=== PATIENT | female | born 1955 | race Caucasian/White ===

== ENCOUNTER 2022-04-01 05:10 | Observation (INO) ==
--- NOTE | 2022-01-07 10:41 | PAT Medication Instructions ---
Medication Instructions Date of Service January 07, 2022 Home Medications acetaminophen 500 mg capsule 500 mg PO Q6H PRN Pain amlodipine 10 mg tablet 10 mg PO HS atorvastatin 10 mg tablet 10 mg PO HS calcium carbonate 200 mg calcium (500 mg) chewable tablet (Tums) 200 mg PO BID PRN Heartburn cholecalciferol (vitamin D3) 25 mcg (1,000 unit) tablet (Vitamin D3) 25 mcg PO QAM cyanocobalamin (vitamin B-12) 1,000 mcg tablet (Vitamin B-12) 1,000 mcg PO QAM escitalopram oxalate 10 mg tablet 10 mg PO QAM folic acid 1 mg tablet 1 mg PO QAM guaifenesin 600 mg tablet, extended release 12 hr 600 mg PO DAILY PRN sinus congestion lisinopril 40 mg tablet 40 mg PO QAM tamsulosin 0.4 mg capsule 0.4 mg PO HS DO NOT take the morning of surgery calcium carbonate 200 mg calcium (500 mg) chewable tablet (Tums) 200 mg PO BID PRN Heartburn cholecalciferol (vitamin D3) 25 mcg (1,000 unit) tablet (Vitamin D3) 25 mcg PO QAM cyanocobalamin (vitamin B-12) 1,000 mcg tablet (Vitamin B-12) 1,000 mcg PO QAM folic acid 1 mg tablet 1 mg PO QAM guaifenesin 600 mg tablet, extended release 12 hr 600 mg PO DAILY PRN sinus congestion lisinopril 40 mg tablet 40 mg PO QAM Take morning of surgery With a small sip of water, OTHERWISE NOTHING TO EAT OR DRINK AFTER MIDNIGHT: acetaminophen 500 mg capsule 500 mg PO Q6H PRN Pain (if needed) escitalopram oxalate 10 mg tablet 10 mg PO QAM Take evening before surgery acetaminophen 500 mg capsule 500 mg PO Q6H PRN Pain (if needed) amlodipine 10 mg tablet 10 mg PO HS atorvastatin 10 mg tablet 10 mg PO HS calcium carbonate 200 mg calcium (500 mg) chewable tablet (Tums) 200 mg PO BID PRN Heartburn (if needed) guaifenesin 600 mg tablet, extended release 12 hr 600 mg PO DAILY PRN sinus congestion (if needed) tamsulosin 0.4 mg capsule 0.4 mg PO HS Other Notes If you have any questions please call us at [phone] or [phone] or [phone] or [phone]
--- NOTE | 2022-01-14 11:35 | Anesthesiology Consultation ---
Date of Service January 14, 2022 Assessment & Plan (1) Encounter for pre-operative examination: - check BSG am DOS. Outpatient joint assessment: Patient is currently scheduled for inpatient pathway. If re-evaluated pending system levels during current pandemic/surgeon requests outpatient pathway, patient is not acceptable candidate for outpatient joint program from anesthesia standpoint. Chart Review Chart Review: Acceptable Risk for Surgery and Patient seen in Pre Admission Testing Teaching & Discussion Pre-Anesthesia Teaching/Discussion Notes: Instructed NPO after midnight before surgery, except medications with 15 cc of water. Medication instructions provided according to the PAT guidelines. History Surgery Operation Date: 02/17/22 08:10 Proposed Procedures p Left Total Knee Arthroplasty - Edgardo Corbett DO Height/Weight Height: 5 ft 5 in Weight: 118.5 kg Allergies Allergy/AdvReac Type Severity Reaction Status Date / Time Sulfa (Sulfonamide Allergy Severe tongue Verified 01/07/22 09:20 Antibiotics) itching watermelon Allergy Severe tongue Verified 01/07/22 09:20 itching Medications Home Medications Medication Instructions Recorded Confirmed Last Taken acetaminophen 500 mg capsule 500 mg PO Q6H PRN Pain 01/07/22 01/07/22 Unknown amlodipine 10 mg tablet 10 mg PO HS 01/07/22 01/07/22 Unknown atorvastatin 10 mg tablet 10 mg PO HS 01/07/22 01/07/22 Unknown calcium carbonate 200 mg calcium 200 mg PO BID PRN Heartburn 01/07/22 01/07/22 Unknown (500 mg) chewable tablet (Tums) cholecalciferol (vitamin D3) 25 25 mcg PO QAM 01/07/22 01/07/22 Unknown mcg (1,000 unit) tablet (Vitamin D3) cyanocobalamin (vitamin B-12) 1,000 mcg PO QAM 01/07/22 01/07/22 Unknown 1,000 mcg tablet (Vitamin B-12) escitalopram oxalate 10 mg tablet 10 mg PO QAM 01/07/22 01/07/22 Unknown folic acid 1 mg tablet 1 mg PO QAM 01/07/22 01/07/22 Unknown guaifenesin 600 mg tablet, 600 mg PO DAILY PRN sinus 01/07/22 01/07/22 Unknown extended release 12 hr congestion lisinopril 40 mg tablet 40 mg PO QAM 01/07/22 01/07/22 Unknown tamsulosin 0.4 mg capsule 0.4 mg PO HS 01/07/22 01/07/22 Unknown biotin 01/14/22 Unknown melatonin QPM 01/14/22 Unknown Additional Notes: Pt was advised she needs to stop biotin 2 weeks before surgery, also written on provided medication instructions. She was advised can continue melatonin at night. She verbalized full understanding and agreement, denied questions or concerns. Past Medical History Medical History (Updated 01/15/22 @ 09:44 by Lisa Prabhakar PA-C) Chronic back pain pelvic/lower back d/t a work injury Chronic kidney disease stage 3 - monitoring, Cr 1.7 04/2021 per [facility] records Depression Diabetes mellitus, type 2 diet controlled H/O no anesthesia given at the time (age 21) Hyperlipidemia Hypertension controlled, stable per pt Mild heartburn Peripheral neuropathy hands and feet bilat Patient denies h/o stroke, seizures, heart attack, heart failure, blood clots or blood transfusions. Exercise / Class Metabolic Activity III < 4 Walking/Shop/Light housework (denies CP or SOB with usual activities) Past Family History Family History Other No family history of adverse response to anesthesia Past Surgical History Surgical History History of cataract surgery bilateral Past Anesthesia History No Hx of Anesthesia Complications and Other (mother slow to wake up) History of PONV No Hx of PONV and No Hx of Motion Sickness Social History Smoking Status: Former smoker tobacco type: cigarettes Do You Dip or Chew Tobacco: No Smoking End Date: 2009 Hx Alcohol Use: Yes alcohol intake frequency: holidays/special occasions only Hx Substance Use: No substance use type: former substance user (marijuana, yrs ago) Review of Systems Chronic cough with postnasal drip. Denies change or worsening. Patient denies chest pain, shortness of breath, dyspnea on exertion, snoring, witnessed apneas, fever, chills, wheezing, or palpitations. Physical Exam Vital Signs Vitals BP 142/84 P 66 TEMP 97.7 SP02 98% on RA RESP 18 Physical Full cervical extension range of motion without pain TMD 3.5 finger breadths Mallampati Score 3 Dentition: intact, several caps/crowns; denies chipped or loose teeth, implants or bridges Lungs: normal respiratory effort. Clear throughout to auscultation, no adventitious breath sounds Cardiac: regular rate and rhythm, no murmurs noted Carotid arteries: negative bruit bilat Lab Results Anesthesia Preop Results Results Anesthesia Widget: WBC 6.24 K/ul (4.8-10.8) 01/14/22 Hgb 12.1 g/dl (12.0-16.0) 01/14/22 Hct 36.0 % (34.1-44.9) 01/14/22 Plt 216 K/uL (130-400) 01/14/22 Na 134 mmol/L (136-145) L 01/14/22 K 4.3 mmol/L (3.5-5.1) 01/14/22 Cl 99 mmol/L (98-107) 01/14/22 CO2 28 mmol/L (21-32) 01/14/22 BUN 33 mg/dl (6-23) H 01/14/22 Creat 1.75 mg/dl (0.6-1.2) H 01/14/22 Glucose Level 145 mg/dl (70-99(Fasting)) H 01/14/22 PT 10.0 Seconds (9.0-12.0) 01/14/22 PTT 29.1 Seconds (21.0-31.0) 01/14/22 INR 0.9 (0.9-1.1) 01/14/22 HA1c 6.8 % (4.5-5.6) H 01/14/22 Urine Color Yellow 01/14/22 Urine Appearance Cloudy (Clear) A 01/14/22 Urine pH 6.0 (4.5-7.5) 01/14/22 Urine Specific [place] 1.017 (1.000-1.030) 01/14/22 Urine Protein 1+ (Negative) H 01/14/22 Urine Glucose (UA) Negative (Negative) 01/14/22 Urine Ketones Negative (Negative) 01/14/22 Urine Blood Negative (Negative) 01/14/22 Urine Nitrite Positive (Negative) A 01/14/22 Urine Bilirubin Negative (Negative) 01/14/22 Urine Urobilinogen Negative (Negative) 01/14/22 Urine Leukocyte Esterase Negative (Negative) 01/14/22 Urine WBC (Auto) 1-5 /hpf (0-5) 01/14/22 Urine RBC (Auto) 0-4 /hpf (0-4) 01/14/22 Urine Hyaline Casts (Auto) 0 /lpf (0-5) 01/14/22 Urine Epithelial Cells (Auto) 20-30 /lpf (0-5) H 01/14/22 Urine Bacteria (Auto) 4+ (Negative) H 01/14/22 Blood Type O Negative 01/14/22 Antibody Screen NEGATIVE 01/14/22 Testing Laboratory Results Yoana with surgeon's office made aware of abnormal UA, renal function. Electrocardiogram Date: 01/14/22 NSR, rate 64 bpm Chest X-Ray Date: 01/14/22 No acute chest disease Other Testing Carotid doppler 03/15/20 R ICA < 50% stenosis L ICA < 50% stenosis
--- NOTE | 2022-03-24 08:03 | History & Physical Report ---
Date of Service March 24, 2022 date of surgery: 04/01/22 Procedure: Left Total Knee Arthroplasty Surgeon: Edgardo Corbett Assessment & Plan (1) Arthritis of knee, left: Plan: Patient presents for preop evaluation prior to her left total knee replacement, all the risk and benefits of the procedure were discussed in detail and she would like to proceed with surgical invention. Will place on aspirin 81 mg twice a day for 1 month postop DVT prophylaxis. She will need to obtain medical clearance from Dr. Thomas prior to her surgery, she does states she lives alone but [facility] [place] and plans on a 2-week stay there after her surgery. Then after that has neighbors and her brother that are willing to help her otherwise she has no other questions or concerns The risks and benefits have been discussed including, but not limited to, risk of infection, nerve injury, stiffness, loss of motion, failure to improve, etc. Reasonable outcomes and options of treatment were discussed. An explanation of appropriate alternatives to the procedure that may be advantageous were discussed and their risks and benefits, as well as the risks and benefits of not proceeding with treatment. I offered to answer any additional inquiries concerning the treatment involved. All the patient's questions were answered. The patient is agreeable, understanding of the treatment plan and alternatives, and wishes to proceed with the treatment plan. History of Present Illness Chief Complaint: left knee pain Primary Care Provider: Khadijah Thomas DO Neli is a pleasant 66-year-old female who presents for preop evaluation prior to her left knee replacement. She states that she been having pain in this knee for many years now and is gradually worsened to the point is affecting her daily activities. She is currently sitting in wheelchair which she uses for longer distances but states she is able to ambulate with a walker. She has tried and failed prior corticosteroid injections as well as using Tylenol and Tylenol PM. She denies any previous history of surgery to the knee. She rates her current pain as a 7 out of 10. Patient does state that she lives alone but has a brother and neighbors that can help her after her surgery Allergies Allergy/AdvReac Type Severity Reaction Status Date / Time Sulfa (Sulfonamide Allergy Unknown tongue Verified 03/23/22 11:11 Antibiotics) itching watermelon Allergy Unknown tongue Verified 03/23/22 11:11 itching SLEEP MEDICINES AdvReac Unknown NIGHTMARES Uncoded 03/23/22 11:11 Home Medications Medication Instructions Recorded Confirmed Type acetaminophen 500 mg capsule 500 mg PO Q6H PRN Pain 01/07/22 01/07/22 History amlodipine 10 mg tablet 10 mg PO HS 01/07/22 01/07/22 History atorvastatin 10 mg tablet 10 mg PO HS 01/07/22 01/07/22 History calcium carbonate 200 mg calcium 200 mg PO BID PRN Heartburn 01/07/22 01/07/22 History (500 mg) chewable tablet (Tums) cholecalciferol (vitamin D3) 25 25 mcg PO QAM 01/07/22 01/07/22 History mcg (1,000 unit) tablet (Vitamin D3) cyanocobalamin (vitamin B-12) 1,000 mcg PO QAM 01/07/22 01/07/22 History 1,000 mcg tablet (Vitamin B-12) escitalopram oxalate 10 mg tablet 10 mg PO QAM 01/07/22 01/07/22 History folic acid 1 mg tablet 1 mg PO QAM 01/07/22 01/07/22 History guaifenesin 600 mg tablet, 600 mg PO DAILY PRN sinus 01/07/22 01/07/22 History extended release 12 hr congestion lisinopril 40 mg tablet 40 mg PO QAM 01/07/22 01/07/22 History tamsulosin 0.4 mg capsule 0.4 mg PO HS 01/07/22 01/07/22 History diphenhydramine 25 1 tab PO HS PRN Sleep 03/23/22 03/23/22 History mg-acetaminophen 500 mg tablet (Tylenol PM Extra Strength) melatonin 3 mg tablet 3 mg PO HS PRN Sleep 03/23/22 03/23/22 History Past Med/Surg History Medical History Chronic back pain pelvic/lower back d/t a work injury Chronic kidney disease stage 3 - monitoring, Cr 1.7 04/2021 per [facility] records Depression Diabetes mellitus, type 2 diet controlled Family history of reaction to anesthesia mother slow to wake up after anesthesia for childbirth in the 1950's H/O no anesthesia given at the time (age 21) Hyperlipidemia Hypertension recently elevated d/t nerves for upcoming surgery per pt Mild heartburn Peripheral neuropathy hands and feet bilat Unique anesthetic considerations present on preoperative anesthesia assessment PT REPORTS FEAR OF BEING PUT UNDER, DOES NOT LIKE THE FEELING OF LOSING CONTROL Surgical History History of cataract surgery bilateral Family History Grandmother Family history of diabetes mellitus Grandfather Family history of diabetes mellitus Grandfather (Paternal) Family history of heart attack Social History Smoking Status: Former smoker Second Hand Exposure: Yes (as a child); Hx Alcohol Use: Yes Alcohol type: wine Hx Substance Use: Yes (1969'S SMOKED POT/EARLY 'S HX COCAINE (CLEAN AT 32 OR 33)) Preferred Language: Danish Communication Ability: Effective Track Template Maker Required: No Beliefs That Will Affect Care: None and Christianity Christianity Beliefs: SHINTO Current Living Situation: Alone Feels Safe at Home: Yes Assistive Devices: Wheelchair and Other Review of Systems Review of Systems: All systems reviewed & are unremarkable except as noted in HPI & below Constitutional: no fever, no chills and no sweats Respiratory: no cough and no dyspnea Cardiovascular: no chest pain, no dyspnea and no orthopnea Gastrointestinal: no abdominal pain, no nausea and no vomiting Musculoskeletal: as per Subjective / HPI Physical Exam Physical Exam: HT: 5ft 5in WT: 113.398 kg Constitutional: WD/WN, vitals as above no acute distress Respiratory: normal respiratory effort, lungs clear to auscultation no respiratory distress, no labored breathing and does not use accessory muscles Cardiovascular: RRR, no murmur, no edema Gastrointestinal (Abdomen): normal bowel sounds, soft, nontender, no hepatosplenomegaly Musculoskeletal: Knee: + knee abnormal to inspection (LEFT KNEE: ), + effusion (+1 effusion), + limited ROM of knee (ROM 0/3/110), + knee ROM with crepitation, + joint line tenderness (medial joint line) and + Christina's sign positive; no deformity, no skin erythema, no ecchymosis, no valgus laxity, no varus laxity, anterior drawer test negative, Sarah's sign negative and pivot shift test negative Results & Data Results & Data ([facility]) Diagnostic Findings Left Knee X-ray: left knee series confirm advanced degenerative changes to the left knee, greatest medial compartments and patellofemoral joint, showing joint space narrowing, osteophyte formation and subchondral sclerosis. no acute bony pathology noted.
--- NOTE | 2022-03-25 12:32 | Anesthesiology Consultation ---
Date of Service March 25, 2022 Assessment & Plan (1) Encounter for pre-operative examination: - COVID screening: Per assessment on 03/25: No known COVID-19 positive contacts or current COVID-19 related symptoms. Travel screen negative. Patient vaccinated. At surgeon discretion if preop Covid testing being done. - Check BSG AM DOS - Outpatient joint assessment: Pt currently scheduled for inpatient pathway. If surgeon requests review for outpatient joint pathway, patient is not recommended candidate for outpatient joint program from anesthesia standpoint. - Anesthesia concern: Patient reports fear of anesthesia, "does not like the feeling of losing control" - Nephrology office visit (02/18/22): "CKD3B stable for past 2 years w/ acceptable chemistries and volume status currently.. From a nephrology perspective, she is acceptable risk to have knee replacement > correa would be to avoid IV contrast and nsaids and to monitor bmp pre/post operatively.. we looked at the CKD heat map > showed her how steps she's taken to improve self care have moved renal risk from red to orange ; unlikely she will ever be other than CKD 3B though.. Hx of recurrent UTI early in her marriage; then resolved now just finishing abtx for asx bacteriuria.. ?if R renal atrophy may reflect VUR earlier in life.. monitor; abtx only w/ +cx and sx ideally in advanced ckd" - PCP office visit (03/18/22): "Pt has revised cardiac index score of One Risk Factor- 1.0% (95% CI: 0.5-1.4) for the surgery scheduled. Patient is low for the listed procedure." - Could not void at PAT: pt bringing urine sample to [facility] per PAT tech. Awaiting UA/urine culture report. Patient otherwise acceptable risk for surgery. Chart Review Chart Review: Patient seen in Pre Admission Testing Teaching & Discussion Pre-Anesthesia Teaching/Discussion Notes: Instructed NPO after midnight before surgery,except medications with 15 cc of water. Medication instructions provided according to the PAT guidelines. History Surgery Operation Date: 04/01/22 07:00 Proposed Procedures p Left Total Knee Arthroplasty - Edgardo Corbett DO Height/Weight Height: 5 ft 5 in Weight: 115.4 kg Allergies Allergy/AdvReac Type Severity Reaction Status Date / Time Sulfa (Sulfonamide Allergy Unknown tongue Verified 03/23/22 11:11 Antibiotics) itching watermelon Allergy Unknown tongue Verified 03/23/22 11:11 itching SLEEP MEDICINES AdvReac Unknown NIGHTMARES Uncoded 03/23/22 11:11 Medications Home Medications Medication Instructions Recorded Confirmed Last Taken acetaminophen 500 mg capsule 500 mg PO Q6H PRN Pain 01/07/22 01/07/22 Unknown amlodipine 10 mg tablet 10 mg PO HS 01/07/22 01/07/22 Unknown atorvastatin 10 mg tablet 10 mg PO HS 01/07/22 01/07/22 Unknown calcium carbonate 200 mg calcium 200 mg PO BID PRN Heartburn 01/07/22 01/07/22 Unknown (500 mg) chewable tablet (Tums) cholecalciferol (vitamin D3) 25 25 mcg PO QAM 01/07/22 01/07/22 Unknown mcg (1,000 unit) tablet (Vitamin D3) cyanocobalamin (vitamin B-12) 1,000 mcg PO QAM 01/07/22 01/07/22 Unknown 1,000 mcg tablet (Vitamin B-12) escitalopram oxalate 10 mg tablet 10 mg PO QAM 01/07/22 01/07/22 Unknown folic acid 1 mg tablet 1 mg PO QAM 01/07/22 01/07/22 Unknown guaifenesin 600 mg tablet, 600 mg PO DAILY PRN sinus 01/07/22 01/07/22 Unknown extended release 12 hr congestion lisinopril 40 mg tablet 40 mg PO QAM 01/07/22 01/07/22 Unknown tamsulosin 0.4 mg capsule 0.4 mg PO HS 01/07/22 01/07/22 Unknown diphenhydramine 25 1 tab PO HS PRN Sleep 03/23/22 03/23/22 Unknown mg-acetaminophen 500 mg tablet (Tylenol PM Extra Strength) melatonin 3 mg tablet 3 mg PO HS PRN Sleep 03/23/22 03/23/22 Unknown Past Medical History Medical History Chronic back pain pelvic/lower back d/t a work injury Chronic kidney disease stage 3 - monitoring, Cr 1.7 04/2021 and 12/2021 labs Depression Diabetes mellitus, type 2 diet controlled H/O No anesthesia given at the time (age 21) Hyperlipidemia Hypertension recently elevated d/t nerves for upcoming surgery per pt Mild heartburn Morbid obesity Peripheral neuropathy b/l hands and feet Exercise / Class Metabolic Activity IV < 2 Limit ADL/Bedbound Past Family History Family History Grandmother Family history of diabetes mellitus Grandfather Family history of diabetes mellitus Grandfather (Paternal) Family history of heart attack Past Surgical History Surgical History History of cataract surgery bilateral Unique anesthetic considerations present on preoperative anesthesia assessment Patient reports fear of anesthesia, "does not like the feeling of losing control" Past Anesthesia History No Hx of Anesthesia Complications Mother slow to wake up after anesthesia for childbirth in the 1950s History of PONV No Hx of PONV and No Hx of Motion Sickness Social History Smoking Status: Former smoker tobacco type: cigarettes Do You Dip or Chew Tobacco: No Smoking End Date: 12 years ago Hx Alcohol Use: Yes Alcohol type: wine alcohol intake frequency: holidays/special occasions only Hx Substance Use: Yes (Hx cocaine use early 30s (clean at [age]) per records) substance use type: does not use Review of Systems Patient denies chest pain, shortness of breath, fever, chills, cough, wheezing, palpitations. Physical Exam Vital Signs VITALS BP 143/73 P 62 TEMP WNL SP02 97%RA RESP 18 PHYSICAL Full cervical extension range of motion. Full TMJ range of motion. TMD 3 finger breaths Mallampati Score 3 Dentition: several missing teeth, + crowns/cap Lungs: clear throughout to auscultation Cardiac: regular rate and rhythm, no murmurs noted Spine: normal Carotid arteries: negative bruit Extremities: no edema Lab Results Anesthesia Preop Results Results Anesthesia Widget: WBC 6.63 K/ul (4.8-10.8) 03/25/22 Hgb 11.8 g/dl (12.0-16.0) L 03/25/22 Hct 35.4 % (34.1-44.9) 03/25/22 Plt 228 K/uL (130-400) 03/25/22 Na 138 mmol/L (136-145) 03/25/22 K 4.7 mmol/L (3.5-5.1) 03/25/22 Cl 101 mmol/L (98-107) 03/25/22 CO2 28 mmol/L (21-32) 03/25/22 BUN 24 mg/dl (6-23) H 03/25/22 Creat 1.70 mg/dl (0.6-1.2) H 03/25/22 Glucose Level 147 mg/dl (70-99(Fasting)) H 03/25/22 PT 9.9 Seconds (9.0-12.0) 03/25/22 PTT 29.0 Seconds (21.0-31.0) 03/25/22 INR 0.9 (0.9-1.1) 03/25/22 HA1c 6.3 % (4.5-5.6) H 03/25/22 Blood Type O Negative 03/25/22 Antibody Screen NEGATIVE 03/25/22 Testing Electrocardiogram Date: 01/14/22 NSR, rate 64 bpm Chest X-Ray Date: 01/14/22 No acute chest disease Other Testing Carotid doppler 03/15/20 R ICA < 50% stenosis L ICA < 50% stenosis COVID-19 Risk Screen Screening Information COVID-19 Screen Date: 03/25/22 Exposure 21 Days Family/Household +COVID Last 21 Days: No Exposure 10 Days Any COVID Exposure Last 10 Days: No Symptoms Last 10 Days Experienced COVID Sx Last 10 Days: No + COVID 0-90 Days COVID + in Last 0-90 Days: No
[2022-04-01] MEDS ORDERED: ROPIVACAINE 0.5% HCL/PF 150 MG, BUPIVACAINE 0.75% MPF 20 ML, EPINEPHrine 30MG/30ML (OR ... INSTIL SCH (06:00)
[2022-04-01] MEDS ORDERED: FAMOTIDINE 20 MG TAB PO SCH (06:00)
[2022-04-01] MEDS ORDERED: dexAMETHasone 4 MG TAB PO SCH (06:00)
[2022-04-01] MEDS ORDERED: METOCLOPRAMIDE HCL 10 MG TABLET PO SCH (06:00)
[2022-04-01] MEDS ORDERED: TRANEXAMIC ACID 1,000 MG **IV Pre-op IV SCH (06:00)
[2022-04-01] MEDS ORDERED: ACETAMINOPHEN 500 MG TAB PO SCH (06:00)
[2022-04-01] MEDS ORDERED: ceFAZolin 2000MG 2,000 MG/15 ML SYR IV SCH (06:00)
[2022-04-01] MEDS ORDERED: LR 500ML BOLUS, THEN 15ML/HR IV SCH (06:00)
[2022-04-01] MEDS ORDERED: CeleBREX 200 MG CAP PO SCH (06:00)
[2022-04-01] MEDS ORDERED: SODIUM CHLORIDE 0.9% 1000ML IV SCH (06:00)
[2022-04-01] MEDS ORDERED: TRANEXAMIC ACID 1,000 MG **IV Intra-op IV SCH (06:00)
[2022-04-01] MEDS ORDERED: GABAPENTIN 300 MG CAP PO SCH (06:00)
[2022-04-01] MEDS ORDERED: BUPIVACAINE 0.25% 30 ML VIAL ONE (06:22)
[2022-04-01] MEDS ORDERED: BUPIVACAINE 0.5 % 5 MG/1 ML PF 10ML VIAL ONE (06:22)
[2022-04-01] MEDS ORDERED: ORTHO JOINT ANESTHETIC ONE (06:39)
[2022-04-01] MEDS ORDERED: PROPOFOL IV EMULSION 10 MG/ML 20 ML VIAL IV ONE (06:49)
[2022-04-01] MEDS ORDERED: MIDAZOLAM HCL 1 MG/ML 2ML VIAL ONE ×2 (06:49)
[2022-04-01] MEDS ORDERED: LIDOCAINE 2% 20 MG/ML 5 ML SYR IV ONE (06:49)
[2022-04-01] MEDS ORDERED: ONDANSETRON INJ 2 MG/ML 2 ML VIAL IV PRN ×2 (06:57→10:06)
[2022-04-01] MEDS ORDERED: ePHEDrine sulfate 50 MG/ML AMP IV PRN (06:57)
[2022-04-01] MEDS ORDERED: fentaNYL citrate 100 MCG/2 ML VIAL IV PRN (06:57)
[2022-04-01] MEDS ORDERED: ATROPINE SULFATE 0.1 MG/ML 10ML SYR IV PRN (06:57)
--- NOTE | 2022-04-01 07:10 | History & Physical Bridge Note ---
Date of Service April 01, 2022 History & Physical Bridge Note I have examined the patient, reviewed the History & Physical and in the interval since the performance of the History & Physical I have noted the following changes of clinical significance: no changes noted
--- NOTE | 2022-04-01 08:35 | Operative Report ---
Post Operative Report Pre & Post Diagnosis Operation Date: 04/01/22 07:00 Pre-Op Diagnosis: Osteoarthritis of Left Knee Post-Op Diagnosis: Osteoarthritis of Left Knee morbid obesity I identified the patient and participated in the time-out.: Yes Procedure Operation Date: 04/01/22 07:00 Actual Procedures p Left Total Knee Arthroplasty(Left) utilizing [employer]phLutonix journey 2 patient mesh total knee arthroplasty/femur 3 left tibia to the left poly 13 mm patella 29 oval- Edgardo Corbett DO Surgeon Edgardo Corbett DO [employer] Consultant Pritesh MCKEON Estimated Blood Loss 5 Findings Consistent with Post-Op Diagnosis Patient presents with severe stage tricompartmental degenerative joint disease varus alignment subchondral sclerosis marginal osteophytes with a moderate to large effusion Specimens Bone and cartilage Drains Medium bore Hemovac Anesthesia Type MAC Spinal Regional Complications none Disposition Accompanied Patient To Recovery: No Disposition: Recovery Room Indications Patient presents for left total arthroplasty after failing 6 0 to management clinic physical therapy anti-inflammatories relative rest activity modification corticosteroid injection viscosupplementation above intraoperative findings were noted Description of Procedure After proper prepping and draping of the left lower extremity anterior midline incision was made over the region of The patient is 114.9 kg] lbs with a BMI of 42.2. The patient's habitus did contribute to significant technical difficulty requiring extra time. Additional help was necessary in order to position the patient safely. The use of specialized (longer, deeper) retractors and/or instruments were needed. Due to this, the procedure took 20] minutes longer than the standard total knee arthroplasty."the extensor extensor mechanism after meticulous hemostasis was obtained and maintained in subcutaneous tissues a medial parapatellar incision was made The patella was subluxed lateralward the medial lateral gutter were cleaned from any hypertrophic synovitis and scar tissue of the distal femoral block was placed and the distal femoral osteotomy cut was made subsequently the chamfers anterior and posterior osteotomy cuts were made utilizing the 4-in-1 block the tibia was subsequently subluxed anteri orward medial and ateral meniscal remnants were excised in their entirety remnants of the anterior and posterior cruciate ligaments were excised in their entirety excellent exposure of the proximal tibia was obtained the tibial osteotomy guide was placed on the proximal tibial osteotomy cut was made once again the knee was irrigated with copious amounts of sterile saline solution the patella was subsequently everted lateralward thickened scar tissue around the patella was removed the patella was subsequently cut utilizing a freehand technique and was drilled prepared for final preparation and placement of patella socially flexion-extension gaps were checked and the equal and symmetric trials were placed to the appropriate femoral and tibial trials with poly-spacer being placed for equal flexion and extension gaps and full range of motion including extension to 0 and flexion to 140 the trial components after having been taken to recovery range of motion was subsequently removed meticulous hemostasis was obtained and maintained subsequently a knee block injection of joint cocktail including ropivacaine 0.5% 150 mg. Bupivacaine 0.5% epinephrine 1-200,030 mL's toradol 30 mg dexamethasone 4 mg ketamine 10 mg clonidine 100 micrograms normal saline solution 30 mg was infiltrated into the soft tissues of the posterior knee medial lateral gutters and periosteal synovium special atten tion was paid to protect neurovascular structures at all times subsequently trial components having been removed the knee was irrigated with sterile saline solution. debris was removed the proximal tibia was subsequently prepared and was made ready for the placement of the tibial component tibial component was also cemented and tamped into position the femoral component was subsequently placed and cemented in the position the patellar component was subsequently cemented in position because hemostasis once again obtained and maintained wound having been thoroughly irrigated with debridement and debridement lavage was performed as well as a medial parapatellar incision closed with #1 Vicryl in interrupted fashion subcutaneous was closed with #2 Vicryl skin was closed with skin clips. PA-C was necessary for prepping and drapping as well as wound closure of deep fascia Sub cutaneous tissue and skin and was necessary for the case. A sterile compressive dressing was placed patient was taken to recovery in stable condition of report dictated by Aric I attest to the content of the Intraoperative Record and any orders documented therein. Any exceptions are noted below.Due to the complex nature of the procedure, the entire surgery was performed with the operational assistance of LINDA Lantigua. The phlebotomist medical lab assistant, under direct supervision, was involved in the actual performance of all aspects of the surgical procedure including hemostasis, tissue retraction and incision, instrument management, patient positioning, and wound closure. I attest to the content of the Intraoperative Record and any orders documented therein. Any exceptions are noted below.
[2022-04-01] MEDS ORDERED: ONDANSETRON INJ 2 MG/ML 2 ML VIAL ONE (08:51)
--- NOTE | 2022-04-01 09:15 | Anesthesiology Progress Note ---
Date of Service April 01, 2022 Anesthesia Post Procedure Vital Signs Vital Signs: Temp Pulse Pulse Resp BP Pulse Ox O2 Del Method 04/01/22 09:10 64 19 127/55 L 100 Oxymask 04/01/22 09:00 36.3 C L 71 12 136/51 L 100 Oxymask 04/01/22 05:36 36.9 C 84 20 163/80 H 97 Room Air O2 Flow Rate 04/01/22 09:10 10 04/01/22 09:00 10 04/01/22 05:36 Pain Intensity Left Knee: Pain Intensity: 0 Transfer of Care Handoff Completed per policy Notes Mental Status: alert / awake / arousable and participated in evaluation Patient Amnestic to Procedure: Yes Nausea / Vomiting: adequately controlled Pain: adequately controlled Airway Patency, RR, SpO2: stable & adequate BP & HR: stable & adequate Hydration State: stable & adequate Neuraxial Anesthesia: was administered and sensory block is resolving Anesthetic Complications: no major complications apparent and Pt Satisfied with anesthetic care
--- NOTE | 2022-04-01 09:57 | XRay Report ---
TWO VIEWS LEFT KNEE CLINICAL HISTORY: Postoperative examination. FINDINGS: AP and crosstable lateral portable views of the left knee are obtained. A left knee arthrop lasty is in near anatomic alignment. There has been undersurface remodeling of the patella. No acute fracture is seen. There are expected postoperative changes around the knee including a surgical drain , soft tissue edema, and subcutaneous gas. IMPRESSION: Expected postoperative changes status post left knee arthroplasty. No acute fracture is s een. ACT 112: Negative or not required by law. Electronically signed by: Raul Rodriguez M.D. 04/01/2022 9:56 AM
[2022-04-01] MEDS ORDERED: CALCIUM CARBONATE 500 MG CHEWABLE TAB PO PRN (10:06)
[2022-04-01] MEDS ORDERED: diphenhydrAMINE Capsule 25 MG CAP PO PRN (10:06)
[2022-04-01] MEDS ORDERED: METOCLOPRAMIDE HCL INJ 5 MG/ML 2 ML VIAL IV PRN (10:06)
[2022-04-01] MEDS ORDERED: MELATONIN 3 MG TAB PO PRN (10:06)
[2022-04-01] MEDS ORDERED: HYDROmorphone INJ 1 MG/ML SYRINGE IV PRN (10:06)
[2022-04-01] MEDS ORDERED: NALOXONE HCL 0.4 MG/1 ML VIAL/CARP IV PRN (10:06)
[2022-04-01] MEDS ORDERED: MAGNESIUM HYDROXIDE SUSP 30 ML UDC PO PRN (10:06)
[2022-04-01] MEDS ORDERED: bisacodyL 10 MG SUPP PR PRN (10:06)
[2022-04-01] MEDS ORDERED: oxyCODONE HCL IR 5 MG TAB (IMMEDIATE RELEASE) PO PRN (10:06)
[2022-04-01] MEDS: SODIUM CHLORIDE 0.9% 1000ML 1,000 ML IV SCH ×2 (10:31→20:31)
[2022-04-01] MEDS: KETOROLAC TROMETHAMINE 15 MG/ML VIAL IV SCH ×3 (10:36→22:43)
[2022-04-01] MEDS: ACETAMINOPHEN 500 MG TAB PO SCH ×2 (14:26→20:34)
--- NOTE | 2022-04-01 16:57 | Anesthesiology Progress Note ---
Date of Service April 01, 2022 Anesthesia Post Procedure Vital Signs Vital Signs: Temp Pulse Pulse Resp BP Pulse Ox O2 Del Method 04/01/22 13:03 79 16 147/66 H 97 Nasal Cannula 04/01/22 12:05 36.6 C 70 18 162/74 H 96 Nasal Cannula 04/01/22 11:08 36.5 C 67 18 138/68 94 Nasal Cannula 04/01/22 10:29 36.5 C 65 18 166/71 H 94 Room Air 04/01/22 10:05 36.6 C 72 16 162/63 H 94 Room Air 04/01/22 09:45 70 15 155/64 H 95 Room Air 04/01/22 09:30 36.5 C 79 18 149/67 H 93 Room Air 04/01/22 09:20 68 17 153/58 H 96 Room Air 04/01/22 09:10 64 19 127/55 L 100 Oxymask 04/01/22 09:00 36.3 C L 71 12 136/51 L 100 Oxymask 04/01/22 05:36 36.9 C 84 20 163/80 H 97 Room Air O2 Flow Rate 04/01/22 13:03 2 04/01/22 12:05 2 04/01/22 11:08 2 04/01/22 10:29 04/01/22 10:05 04/01/22 09:45 04/01/22 09:30 04/01/22 09:20 04/01/22 09:10 10 04/01/22 09:00 10 04/01/22 05:36 Pain Intensity Left Knee: Pain Intensity: 0 Transfer of Care Handoff Completed per policy Notes Mental Status: alert / awake / arousable Patient Amnestic to Procedure: Yes Nausea / Vomiting: adequately controlled Pain: adequately controlled Airway Patency, RR, SpO2: stable & adequate BP & HR: stable & adequate Hydration State: stable & adequate Neuraxial Anesthesia: was administered and sensory block is resolving Anesthetic Complications: no major complications apparent and Pt Satisfied with anesthetic care
[2022-04-01] MEDS: ceFAZolin 2000MG 2,000 MG/15 ML SYR IV SCH ×2 (17:18→22:43)
[2022-04-01] MEDS: ASPIRIN 81 MG ECTAB PO SCH (20:33)
[2022-04-01] MEDS: DOCUSATE SODIUM 100 MG CAP PO SCH (20:33)
[2022-04-01] MEDS ORDERED: TAMSULOSIN HCL 0.4 MG CAP PO SCH (21:00)
[2022-04-01] MEDS ORDERED: amLODIPine BESYLATE 5 MG TAB PO SCH (21:00)
[2022-04-01] MEDS ORDERED: ATORVASTATIN 10 MG TAB PO SCH (21:00)
[2022-04-01] MEDS ORDERED: SENNA 8.6 MG TAB PO SCH (21:00)
[2022-04-02] MEDS: KETOROLAC TROMETHAMINE 15 MG/ML VIAL IV SCH (04:19)
[2022-04-02] MEDS: ACETAMINOPHEN 500 MG TAB PO SCH ×2 (06:07→13:43)
[2022-04-02 08:24] LABS: Hematocrit (blood only) 28.8 % (37.0-47.0); Hemoglobin 9.8 g/dl (12.0-16.0); Mean Corpuscular Hemoglobin 29.6 pg (25.0-34.0); Mean Platelet Volume 9.8 fL (9.4-12.4); Platelet Count 211 K/uL (130-400); RDW Coefficient of Variation 12.3 % (11.5-14.5); RDW Standard Deviation 39.6 fL (36.4-46.3); Red Blood Count 3.31 M/uL (4.20-5.40)
[2022-04-02] MEDS: DOCUSATE SODIUM 100 MG CAP PO SCH (08:50)
[2022-04-02] MEDS: ASPIRIN 81 MG ECTAB PO SCH (08:51)
[2022-04-02] MEDS ORDERED: ESCITALOPRAM OXALATE 10 MG TAB PO SCH (09:00)
[2022-04-02] MEDS ORDERED: FOLIC ACID 1 MG TAB PO SCH (09:00)
[2022-04-02] MEDS ORDERED: lisinopril 40 MG TAB PO SCH (09:00)
[2022-04-02] MEDS ORDERED: MULTIVITAMIN TAB PO SCH (09:00)
[2022-04-02] MEDS ORDERED: CHOLECALCIFEROL 1,000 UNITS 25 MCG TAB PO SCH (09:00)
[2022-04-02] MEDS ORDERED: CYANOCOBALAMIN (B-12) 500 MCG TABLET PO SCH (09:00)
[2022-04-02] MEDS ORDERED: traMADol HCL 50 MG TABLET PO PRN (09:06)
--- NOTE | 2022-04-02 09:31 | Orthopedic Progress Note ---
Date of Service April 02, 2022 Assessment & Plan (1) Arthritis of knee, left: Plan: Postop day 1 status post left total knee arthroplasty. PT/OT protocols. Weightbearing as tolerated. DVT prophylaxis-aspirin p.o. twice daily, SCDs, KINGSLEY bernard. Pain management as written. DC planning-patient has plans for rehab facility which she is already made arrangements for bed availability. manager web to finalize. Possible discharge today. Admission and Anticipated Discharge Date Admission Date: April 01, 2022 Subjective Postop day 1 Patient sitting in chair at the bedside. Finishing breakfast. No complaints this morning. Pain is controlled. Patient states that she has arranged for a rehab type stay postdischarge. Physical Exam Physical Exam: Dressings are clean, dry, and intact. Calves are soft nontender. Neurovascular intact. Toes are mobile. She has good dorsiflexion and plantarflexion of the left knee. Results & Data ([facility]) Vital Signs (Past 12 Hours) Vital Signs Temp Pulse Pulse Resp BP Pulse Ox O2 Del Method 04/02/22 08:23 36.5 C 68 18 136/66 95 Room Air 04/02/22 07:31 36.5 C 68 18 136/66 95 Room Air 04/02/22 04:40 36.8 C 62 18 129/65 93 Room Air 04/01/22 22:55 36.3 C L 66 18 149/68 H 95 Room Air
[2022-04-02 11:39] LABS: BUN Creatinine Ratio 17.1 (10-20); Calcium 8.8 mg/dl (8.5-10.1); Creatinine Clr Calc Pharmacy 33.7 ml/min; Est GFR (African American) 28.3 ml/min; Est GFR (Non-African American) 24.5 ml/min; Potassium 4.7 mmol/L (3.5-5.1)
--- NOTE | 2022-04-02 15:15 | Discharge Summary ---
Date of Service date of discharge: April 02, 2022 date of admission: 04/01/22 Admission HPI Per Admitting Provider Neli is a pleasant 66-year-old female who presents for preop evaluation prior to her left knee replacement. She states that she been having pain in this knee for many years now and is gradually worsened to the point is affecting her daily activities. She is currently sitting in wheelchair which she uses for longer distances but states she is able to ambulate with a walker. She has tried and failed prior corticosteroid injections as well as using Tylenol and Tylenol PM. She denies any previous history of surgery to the knee. She rates her current pain as a 7 out of 10. Patient does state that she lives alone but has a brother and neighbors that can help her after her surgery Principal Diagnosis left knee arthritis Discharge Exam Musculoskeletal left knee: NVDI, calf SNT, negative dariela sign. DP palpable, able to wiggle toes/ankle movement without difficulty. SHOBHA dressing clean dry and intact. expected post-operative bruising noted. Discharge Data Allergies Allergy/AdvReac Type Severity Reaction Status Date / Time Sulfa (Sulfonamide Allergy Unknown tongue Verified 04/01/22 05:32 Antibiotics) itching watermelon Allergy Unknown tongue Verified 04/01/22 05:32 itching SLEEP MEDICINES AdvReac Unknown NIGHTMARES Uncoded 03/23/22 11:11 Procedures Performed Operation Date: 04/01/22 07:00 Actual Procedures p Left Total Knee Arthroplasty(Left) - Edgardo Corbett DO Ordered Studies 04/01/22 05:00 US - OR guided needle placemen Routine Hospital Course (1) Arthritis of knee, left: Postop day 1 status post left total knee arthroplasty. PT/OT protocols. Weightbearing as tolerated. DVT prophylaxis-aspirin p.o. twice daily, KINGSLEY Rooney. Pain management as written. DC planning-patient has plans for rehab facility which she is already made arrangements for bed availability. body corporate manager to finalize. Possible discharge today. Total Time Total Time Spent Total Time Spent (In Minutes): 20 Discharge Plan Discharge Items Patient Disposition: Personal Half-Way Reason For Visit: POST OP TKA Discharge Diagnosis: LEFT TOTAL KNEE REPLACEMENT Activity: Per Instructions section Weightbearing Comment: WBAT WITH WALKER Non-emergency contact: Surgeon Call non-emergency contact if: you have any medication questions, your tempera ture is above 101, your wound has increased redness, your wound has increased drainage and your wound pain has increased Follow-up/Referrals: Khadijah Thomas, [Primary Care Provider] - Diet: Regular Ambulatory Orders: Basic Metabolic Panel (Routine) Timeframe: [id number] Location: Determined by Patient Ordered By: Valerio Batista Attending Provider Instructions: ACTIVITY RECOMMENDATIONS: SELF CARE INSTRUCTIONS AFTER TOTAL KNEE REPLACEMENT A. You may need to continue a physical therapy program after discharge from the hospital. There are several options available to you. Your doctor will assist you in selecting the best one for you. 1. An out-patient facility 2 to 3 times a week for therapy or home therapy. 2. Continue working on all exercises taught to you in the hospital. Your goals should be to increase bending of your knee to 90 degrees and beyond and to fully straighten your knee. B. You may progress at your own pace from walking with a walker or crutches to a cane; then to no assistive devices. C. Make walking a part of your daily routine. Be up as much as comfortable with rest periods throughout the day. Rest with leg elevation is very important. Use the ice wrap frequently for the first 3-4 weeks. D. There are no restrictions on activities. You may ride in a car, shop, participate in historical records administrator and all social activities. E. Wear the long elastic stockings (KINGSLEY hose) 20 hours a day for 2 weeks after surgery. They can be removed several times a day for laundering and for a bath. F. You may shower, no tub baths until cleared by your doctor. SPECIAL CARE INSTRUCTIONS: VERY IMPORTANT TO READ AND REVIEW A. There are a few signs you need to watch for after you are home. Call [facility] if you notice any of the followin. Increased severe knee pain. Some pain is expected especially when you exercise. 2. Increased swelling in your leg or knee; pain or swelling of the calf muscle in either lower leg. 3. Any fluid drainage from the incision. 4. Shortness of breath or chest pain. B. Please call [facility] at if you have any concerns or questions about your operation or recovery. The doctor or his nurse will return your call promptly. C. You must take antibiotics before dental work, bladder, bowel or other surgery. Your doctor will provide you with a permanent care to carry describing this precaution. IMPORTANT: * REMEMBER TO TAKE ASPIRIN, 81 MG, TWICE DAILY FOR 4 WEEKS UNLESS OTHERWISE DIRECTED. THIS IS YOUR BLOOD THINNER. * HIGH RISK PATIENTS MAY BE PRESCRIBED A STRONGER BLOOD THINNER. THIS WILL BE PROVIDED AT DISCHARGE. * CALL IF INCREASED PAIN, REDNESS, DRAINAGE OR FEVER GREATER THAT 101. * WEAR KINGSLEY HOSE 20 HOURS PER DAY FOR 2 WEEKS. * DRESSING INSTRUCTIONS * SHOBHA Dressing- This is a large suction dressing covering your incision. This will help pull any excess drainage from the wound and allow your incision to heal properly. You may shower with this if you can keep the unit outside of the shower. If any bleeding or leakage is noted please call your doctor's office. This will remain on your incision for 7 days and then should be removed. This can be done yourself or by the home nursing staff if applicable. The entire unit is disposable once removed. Once removed, keep incision clean and dry. If redness or drainage is noted, please call your surgeon. ONCE SHOBHA IS REMOVED, FOLLOW THESE INSTRUCTIONS: DERMABOND Prineo- This is a mesh tape dressing that is covered with glue. It should remain in place until the incision is properly healed, usually 10-14 days. This dressing is designed to naturally slough off. You may trim the excess mesh tape as it peels off. Incision may be briefly wet in a shower. Dry immediately by blotting with a clean, dry towel. Do not bath or swim until instructed by your doctor. Do not scratch, rub, or pick at the dressing. Do not apply any topical ointments or lotions until dressing is completely removed and/or instructed by your doctor. There may be a small piece of suture material at one end of your incision. Do not pull or trim this. If it is bothersome or catching on clothing, you may cover it with a band-aid. IF INCISION IS LEAKING THROUGH DRESSING, CALL THE OFFICE . FOLLOW UP VISIT: If appointment is not already scheduled: Please call [facility] to make a follow-up appointment for 2 weeks after your surgery at . Stand-Alone Forms: My [employer] [place], Smoking Cessation Skilled Items Lines: None Urinary Catheter: No Medications and DC Order Prescriptions: New acetaminophen [Tylenol Extra Strength] 500 mg Tablet 1,000 mg PO Q8 21 Days Qty: 126 0RF aspirin 81 mg Tablet,Delayed Release (Dr/Ec) 81 mg PO BID 30 Days Qty: 60 0RF docusate sodium 100 mg Capsule 100 mg PO BID 10 Days Qty: 20 0RF nitrofurantoin monohyd/m-cryst [Macrobid] 100 mg capsule 100 mg PO BID 7 Days Qty: 14 0RF Rx Instructions: must administer with a meal/food tramadol 50 mg tablet 50 - 100 mg PO Q4H MDD 12 tabs PRN (Reason: pain) Qty: 36 0RF Rx Instructions: take 1 tab for pain scale of 1-5; 2 tabs for pain scale of 6-10 Continued atorvastatin 10 mg Tablet 10 mg PO HS cyanocobalamin (vitamin B-12) [Vitamin B-12] 1,000 mcg Tablet 1,000 mcg PO QAM tamsulosin 0.4 mg Capsule 0.4 mg PO HS amlodipine 10 mg Tablet 10 mg PO HS folic acid 1 mg Tablet 1 mg PO QAM lisinopril 40 mg Tablet 40 mg PO QAM escitalopram oxalate 10 mg Tablet 10 mg PO QAM cholecalciferol (vitamin D3) [Vitamin D3] 25 mcg (1,000 unit) Tablet 25 mcg PO QAM calcium carbonate [Tums] 200 mg calcium (500 mg) Tablet,Chewable 200 mg PO BID PRN (Reason: Heartburn) melatonin 3 mg Tablet 3 mg PO HS PRN (Reason: Sleep) Discontinued acetaminophen [Tylenol Extra Strength] 500 mg Capsule 500 mg PO Q6H PRN (Reason: Pain) guaifenesin 600 mg Tablet Extended Release 12hr 600 mg PO DAILY PRN (Reason: sinus congestion) diphenhydramine-acetaminophen [Tylenol PM Extra Strength] 25-500 mg Tablet 1 tab PO HS PRN (Reason: Sleep) Discharge Orders: Discharge Order (Routine); Ordered 04/02/22 Ordered By: Valerio Moody Admission Data Admit Date/Time: 04/01/22 09:07 Attending Provider: Edgardo Corbett Admit Provider: Edgardo Corbett Primary Care Provider: Khadijah Thomas Other Interventions: Discharge Summary Assessment (RN) Last Done: 04/02/22 13:29
== END 2022-04-02 16:30 | disposition home or self-care (01) ==
LOC: ASU 05:10 → 3N 05:10
DX: M17.12 Unilateral primary osteoarthritis, left knee; M65.9 Synovitis and tenosynovitis, unspecified; Z79.899 Other long term (current) drug therapy; E66.01 Morbid (severe) obesity due to excess calories; Z68.41 Body mass index [BMI] 40.0-44.9, adult; Z87.891 Personal history of nicotine dependence; Z88.2 Allergy status to sulfonamides